=== PATIENT | female | born 1940 | race Caucasian/White ===

== ENCOUNTER → 2021-02-14 | Outpatient (CLI) | payer OTHER, MEDICARE ==
[~2021-02-14] MED LIST: ALBU8.5H8 IH; ASCO100019 PO; ATOR20TA37 PO; CALC-451 PO; CETI-158 PO; CHOL10003 PO; CHOL4POW3 PO; DONE10TA14 PO; DULO60CA56 PO; ESTR50GE TP; FLUT9.9S NAS; KRIL1CAP7 PO; MEMA10TA PO; PSYL1PAC9 PO; TIOT18CA INH; TRAM50TA2 PO; TURM538C PO; UBID100C24 PO; VIT1TABL32 PO; VITA-66 PO; VITA1TAB67 PO
[2021-02-14 12:50] LABS: MICROSCOPIC NOT IND
[2021-02-14 12:58] LABS: ALANINE AMINOTRANSFERASE 21 U/L (12-78); ALBUMIN 3.1 g/dL (3.4-5.0); ANION GAP 6 mmol/L (5-15); CALCIUM 9.6 mg/dL (8.5-10.1); CHLORIDE 111 mmol/L (98-107); CREATININE 0.59 mg/dL (0.55-1.02)
[2021-02-14 12:59] LABS: PROTHROMBIN TIME 10.7 Seconds (9.6-11.5)
[2021-02-14 13:00] LABS: ALKALINE PHOSPHATASE 76 U/L (45-117); BASOPHILS % (AUTO) 1 % (0-1); BILIRUBIN,TOTAL 0.5 mg/dL (0.2-1.0); EOSINOPHILS % (AUTO) 1 % (1-7); LYMPHOCYTES % (AUTO) 13 % (22-44); MEAN CORPUSCULAR HEMOGLOBIN 32.2 pg (27.0-34.8); MEAN CORPUSCULAR HGB CONC 33.6 g/dL (32.4-35.8); MEAN PLATELET VOLUME 7.4 fL (7.4-10.4); MONOCYTES % (AUTO) 6 % (2-9); NEUTROPHILS % (AUTO) 79 % (42-75); PLATELET COUNT 290 x10^3/uL (130-400); RED BLOOD COUNT 4.15 x10^6/uL (3.82-5.3); RED CELL DISTRIBUTION WIDTH 13.8 % (9.6-15.2); TOTAL PROTEIN 6.9 g/dL (6.4-8.2)
== END | disposition home or self-care (01) ==
LOC: STAR 11:18
PROVIDERS: ATTEND Neurological Surgery
DX: Z01.810 Encounter for preprocedural cardiovascular examination (principal); Z01.811 Encounter for preprocedural respiratory examination; Z01.812 Encounter for preprocedural laboratory examination; M48.061 Spinal stenosis, lumbar region without neurogenic claudication; M54.5 Low back pain; M54.16 Radiculopathy, lumbar region; R79.1 Abnormal coagulation profile; R82.90 Unspecified abnormal findings in urine; R94.31 Abnormal electrocardiogram [ECG] [EKG]; Z20.822 Contact with and (suspected) exposure to COVID-19
CPT/HCPCS: 36415; 71046; 80053; 81003; 85025; 85610; 85730; 93005; U0003; U0005